=== PATIENT | female | born 1985 | race Caucasian/White ===

== ENCOUNTER → 2016-04-07 | Outpatient (CLI) | payer OTHER ==
[~2016-04-07] MED LIST: LEVO88TA PO; LEVO88TA3 PO; METH0.2T39 PO; PRENTAB26 PO
[2016-04-07 12:04] LABS: THYROID STIMULATING HORMONE 0.916 uIu/ml (0.300-4.500)
== END | disposition home or self-care (01) ==
LOC: C.LAB1850 09:06
PROVIDERS: ATTEND Obstetrics & Gynecology
DX: O99.280 Endocrine, nutritional and metabolic diseases complicating pregnancy, unspecified trimester (principal); Z3A.00 Weeks of gestation of pregnancy not specified

== ENCOUNTER → 2016-04-19 | Outpatient (CLI) | payer OTHER ==
[2016-04-19 16:44] LABS: BASO % 0.4 %; BASO ABS # 0.05 K/uL (0-0.2); COMPLETE YES; EOS % 0.5 %; HEMATOCRIT 34.4 % (37-47); IG% 4.9 %; LYMPH % 16.2 %; LYMPH ABS # 2.21 K/uL (1.2-3.4); MEAN CELL VOLUME 85.6 fL (80-100); MEAN CORPUSCULAR HEMOGLOBIN 28.9 pg (25-34); MEAN CORPUSCULAR HGB CONC 33.7 g/dl (32-36); MONO % 6.3 %; NEUT % 71.7 %; PLATELET COUNT 350 K/uL (130-400); RED BLOOD COUNT 4.02 M/uL (4.2-5.4); WHITE BLOOD COUNT 13.63 K/uL (4.8-10.8)
[2016-04-19 16:52] LABS: ALT/SGPT 13 U/L (12-78); BLOOD UREA NITROGEN 8 mg/dl (7-18); BUN/CREATININE RATIO 13.9 (10-20); CALCIUM 8.8 mg/dl (8.5-10.1); CARBON DIOXIDE 25 mmol/L (21-32); CHLORIDE 104 mmol/L (98-107); CREATININE 0.54 mg/dl (0.60-1.20); GLUCOSE 83 mg/dl (70-99); POTASSIUM 3.6 mmol/L (3.5-5.1); SODIUM 140 mmol/L (136-145)
[2016-04-19 17:03] LABS: ALB/GLOB RATIO 0.8 (0.9-2); ALKALINE PHOSPHATASE 51 U/L (45-117); AST/SGOT 14 U/L (15-37); THYROID STIMULATING HORMONE 0.554 uIu/ml (0.300-4.500)
== END | disposition home or self-care (01) ==
LOC: C.LAB1850 15:07
PROVIDERS: ATTEND Internal Medicine Endocrinology, Diabetes & Metabolism
DX: E06.3 Autoimmune thyroiditis (principal)

== ENCOUNTER 2016-04-23 11:30 | Emergency (ER) | payer OTHER ==
[~2016-04-23] VITALS: Ht 165.1 cm; Wt 66.0 kg
[~2016-04-23 11:30] MED LIST changes: -LEVO88TA PO; -PRENTAB26 PO
[2016-04-23 11:35] VITALS: TEMP 36.8; Ht 165.1 cm; Wt 66.0 kg
[2016-04-23 11:42] VITALS: O2SAT 97
[2016-04-23 12:15] LABS: BASO % 0.3 %; BASO ABS # 0.04 K/uL (0-0.2); COMPLETE YES; EOS % 0.4 %; HEMATOCRIT 36.5 % (37-47); IG% 4.8 %; LYMPH ABS # 2.35 K/uL (1.2-3.4); MEAN CELL VOLUME 86.7 fL (80-100); MEAN CORPUSCULAR HGB CONC 33.4 g/dl (32-36); MEAN PLATELET VOLUME 9.9 fL (7.4-10.4); MONO % 5.4 %; NEUT % 73.1 %; PLATELET COUNT 356 K/uL (130-400); RED BLOOD COUNT 4.21 M/uL (4.2-5.4); WHITE BLOOD COUNT 14.67 K/uL (4.8-10.8)
[2016-04-23 12:22] LABS: URINE APPEARANCE CLEAR (CLEAR); URINE BILIRUBIN NEG (NEG); URINE COLOR YELLOW; URINE NITRITE NEG (NEG); UROBILINOGEN NEG (NEG); ZZUR CULT IF INDIC CLEAN CATCH NO
[2016-04-23 12:23] LABS: MANUAL MICROSCOPIC REQUIRED? NO; REVIEW REQ? NO
[2016-04-23 12:58] LABS: ALB/GLOB RATIO 0.8 (0.9-2); ALKALINE PHOSPHATASE 56 U/L (45-117); ALT/SGPT 16 U/L (12-78); AST/SGOT 13 U/L (15-37); CHLORIDE 104 mmol/L (98-107); POTASSIUM 3.9 mmol/L (3.5-5.1); SODIUM 139 mmol/L (136-145)
--- NOTE | 2016-04-23 12:58 | DIAGNOSTIC IMAGING REPORT ---
CHEST ONE VIEW PORTABLE CLINICAL HISTORY: palpitations, pt is 23 wks COMPARISON STUDY: No previous studies for comparison. FINDINGS: The cardiac and mediastinal contours are normal. There is no evidence of focal pulmonary consolidation. There is no evidence of failure. No pleural effusions are visualized.[ IMPRESSION: No active disease in the chest. Electronically signed by: Gonzalez Valdez M.D. 04/23/2016 12:57 PM Dictated Date/Time: 04/23/2016 12:57 PM
[2016-04-23 13:12] LABS: BLOOD UREA NITROGEN 7 mg/dl (7-18); BUN/CREATININE RATIO 10.2 (10-20); CALCIUM 9.2 mg/dl (8.5-10.1); CARBON DIOXIDE 25 mmol/L (21-32); CREATININE 0.65 mg/dl (0.60-1.20); GLUCOSE 73 mg/dl (70-99)
--- NOTE | 2016-04-23 13:46 | EMERGENCY ROOM VISIT NOTE ---
History First contact with patient: 11:51 Chief Complaint: REFERRED BY DOCTOR Stated Complaint: HIGH RESTING HEART RATE, 23WKS PREG History of Present Illness The patient is a 31 year old female who presents to the Emergency Room with complaints of tachycardia. The patient is currently 23 weeks . She states that over the past 2 weeks, she has had 3 separate episodes of a high resting heart rate. She states that this morning while she was sitting down, she began to feel palpitations with some associated shortness of breath. She states that she checked her heart rate on her watch and it was 130 to 140 bpm. She states that the episode lasted approximately 2 hours. She has had these episodes in the past, they have resolved without any treatment. She has been seeing her XEROX MACHINE ASSEMBLER regarding these and she called them today, so they sent her here for further evaluation. The patient has a history of Neema's but has been following up closely with endocrinology and states that she had a normal TSH and T4 this week. Her has been uneventful so far. This is her second . She denies any chest pain, nausea, vomiting, recent illness or fevers. She denies any history of blood clots. She is not a smoker. She denies any recent long travel or recent surgeries. Review of Systems A complete 10-point Review of Systems was discussed with the patient, with pertinent positives and negatives listed in the History of Present Illness. All remaining Review of Systems questions can be considered negative unless otherwise specified. Past Medical/Surgical History Medical Problems: (1) Breast cancer (2) History of partial mastectomy of both breasts Family History Patient reports no known family medical history. Social History Smoking Status: Never Smoker Alcohol Use: none Marital Status: Occupation Status: employed Current/Historical Medications Scheduled Levothyroxine Sodium (Synthroid), 88 MCG PO DAILY Multivit/Min/Iron/Fol Ac/Pren ( Vitamin), 1 TAB PO DAILY Allergies Coded Allergies: Propoxyphene (Verified Allergy, Intermediate, hives, 07/20/15) Codeine (Verified Allergy, Unknown, hives, 07/20/15) Oxycodone (Verified Allergy, Unknown, hives, 07/20/15) Physical Exam Vital Signs Date Time Temp Pulse Resp B/P Pulse Ox O2 Delivery O2 Flow Rate FiO2 04/23/16 13:58 73 16 104/64 98 04/23/16 12:45 70 18 133/62 100 Room Air 04/23/16 12:08 86 04/23/16 11:42 97 Room Air 04/23/16 11:35 36.8 86 16 125/73 99 Room Air Physical Exam VITALS: Vitals are noted on the nurse's note and reviewed by myself. Vital signs stable. GENERAL: This is a 31-year-old female, in no acute distress, nondiaphoretic, well-developed well-nourished. SKIN: Capillary reflex less than 2 seconds. HEENT: Normocephalic. PERRLA. EOMI. Nares. Mucous membranes moist. Neck is supple without nuchal rigidity. HEART: Regular rate and rhythm without murmurs gallops or rubs. LUNGS: Clear to auscultation bilaterally without wheezes, rales or rhonchi. No retractions or accessory muscle use. ABDOMEN: Gravid uterus. Soft, nontender to palpation. NEURO: Patient was alert and oriented to person place and time. Medical Decision & Procedures ER Provider Diagnostic Interpretation: CHEST ONE VIEW PORTABLE FINDINGS: The cardiac and mediastinal contours are normal. There is no evidence of focal pulmonary consolidation. There is no evidence of failure. No pleural effusions are visualized.[ IMPRESSION: No active disease in the chest. Laboratory Results 04/23/16 11:46 Red Blood Count 4.21, Mean Corpuscular Volume 86.7, Mean Corpuscular Hemoglobin 29.0, Mean Corpuscular Hemoglobin Concent 33.4, Mean Platelet Volume 9.9, Neutrophils (%) (Auto) 73.1, Lymphocytes (%) (Auto) 16.0, Monocytes (%) (Auto) 5.4, Eosinophils (%) (Auto) 0.4, Basophils (%) (Auto) 0.3, Neutrophils # (Auto) 10.73, Lymphocytes # (Auto) 2.35, Monocytes # (Auto) 0.79, Eosinophils # (Auto) 0.06, Basophils # (Auto) 0.04 04/23/16 11:46 Test 04/23/16 11:40 04/23/16 11:46 Urine Color YELLOW Urine Appearance CLEAR (CLEAR) Urine pH 7.0 (4.5-7.5) Urine Specific Cost 1.000 (1.000-1.030) Urine Protein NEG (NEG) Urine Glucose (UA) NEG (NEG) Urine Ketones NEG (NEG) Urine Occult Blood NEG (NEG) Urine Nitrite NEG (NEG) Urine Bilirubin NEG (NEG) Urine Urobilinogen NEG (NEG) Urine Leukocyte Esterase NEG (NEG) White Blood Count 14.67 K/uL (4.8-10.8) Red Blood Count 4.21 M/uL (4.2-5.4) Hemoglobin 12.2 g/dL (12.0-16.0) Hematocrit 36.5 % (37-47) Mean Corpuscular Volume 86.7 fL (80-100) Mean Corpuscular Hemoglobin 29.0 pg (25-34) Mean Corpuscular Hemoglobin Concent 33.4 g/dl (32-36) Platelet Count 356 K/uL (130-400) Mean Platelet Volume 9.9 fL (7.4-10.4) Neutrophils (%) (Auto) 73.1 % Lymphocytes (%) (Auto) 16.0 % Monocytes (%) (Auto) 5.4 % Eosinophils (%) (Auto) 0.4 % Basophils (%) (Auto) 0.3 % Neutrophils # (Auto) 10.73 K/uL (1.4-6.5) Lymphocytes # (Auto) 2.35 K/uL (1.2-3.4) Monocytes # (Auto) 0.79 K/uL (0.11-0.59) Eosinophils # (Auto) 0.06 K/uL (0-0.5) Basophils # (Auto) 0.04 K/uL (0-0.2) RDW Standard Deviation 43.6 fL (36.4-46.3) RDW Coefficient of Variation 13.9 % (11.5-14.5) Immature Granulocyte % (Auto) 4.8 % Immature Granulocyte # (Auto) 0.70 K/uL (0.00-0.02) Anion Gap 10.0 mmol/L (3-11) Est Creatinine Clear Calc Drug Dose 113.9 ml/min Estimated GFR () 138.1 Estimated GFR (Non- 119.1 BUN/Creatinine Ratio 10.2 (10-20) Calcium Level 9.2 mg/dl (8.5-10.1) Total Bilirubin 0.2 mg/dl (0.2-1) Aspartate Amino Transf (AST/SGOT) 13 U/L (15-37) Alanine Aminotransferase (ALT/SGPT) 16 U/L (12-78) Alkaline Phosphatase 56 U/L (45-117) Troponin I < 0.015 ng/ml (0-0.045) Total Protein 7.0 gm/dl (6.4-8.2) Albumin 3.2 gm/dl (3.4-5.0) Globulin 3.8 gm/dl (2.5-4.0) Albumin/Globulin Ratio 0.8 (0.9-2) Free Thyroxine 1.09 ng/dl (0.80-1.60) ECG Rate (beats per minute): 77 Rhythm: normal sinus Findings: no acute ischemic change, no ectopy Comparison ECG Date: no prior available Medical Decision Differential diagnosis includes arrhythmia, ACS, pulmonary embolism, anxiety, among others. The patient was evaluated as above. Labs were drawn and IV access was obtained. Imaging studies were performed and read by radiology as above. The patient was reassessed multiple times during their stay in the emergency department and remained in stable condition. The patient is a 31-year-old female at 23 weeks gestation who presents today complaining of palpitations. Labs revealed no leukocytosis, anemia or concerning electrolyte abnormalities. Urinalysis was not suggestive of infection. The patient had a normal TSH and T4 this week. EKG was interpreted by myself and showed a normal sinus rhythm. Chest x-ray was performed and was unremarkable. The patient was placed on a bus driver/monitor throughout her stay and her heart rate remained in the 70s to 80s. heart tones were checked and were within normal limits. The patient's symptoms may be related to anxiety. She most likely will need a Holter monitor in the future. However, I do not feel that she needs to be admitted at this time. She may follow-up with cardiology as an outpatient. I spoke with the patient's XEROX MACHINE ASSEMBLER, Dr. Amaya, who recommended reassuring the patient that there was no risk of harm to the fetus. They will arrange follow-up with cardiology from their office this Monday. All findings were discussed with the patient, who was happy with this plan of care. Based on the patient's presentation, lab results, and imaging studies, I feel the patient is stable for outpatient treatment. The patient's case was reviewed with Dr. Cerna, ED attending physician, who agreed with my assessment and treatment plan. Discharge instructions were reviewed with the patient. The patient verbalized understanding of my assessment and treatment plan and was discharged home in good condition. Impression Primary Impression: Palpitations Departure Information Dispostion Home / Self-Care Condition GOOD Referrals No Doctor, Assigned (PCP) Adal Amaya M.D. Patient Instructions My [facility] Additional Instructions Call your XEROX MACHINE ASSEMBLER's office on Monday to schedule follow-up and referral to cardiology. Return to the emergency department with chest pain, worsening shortness of breath, persistent palpitations or any other new/concerning symptoms.
[2016-04-23 13:58] VITALS: BP 104/64; PULSE 73; O2SAT 98
[2016-04-23] MEDS ORDERED: LEVO88TA PO (14:01)
[2016-04-23] MEDS ORDERED: PRENTAB26 PO (14:01)
== END 2016-04-23 13:59 | disposition home or self-care (01) ==
LOC: C.EDB 11:31 → C.EDA 13:59
DX: O99.413 Diseases of the circulatory system complicating pregnancy, third trimester (principal); R00.2 Palpitations; Z85.3 Personal history of malignant neoplasm of breast; Z90.13 Acquired absence of bilateral breasts and nipples

== ENCOUNTER → 2016-05-26 | Outpatient (CLI) | payer OTHER ==
[~2016-05-26] MED LIST changes: +LEVO88TA PO; -LEVO88TA3 PO; -METH0.2T39 PO; +PRENTAB26 PO
[2016-05-26 11:27] LABS: HEMATOCRIT 33.8 % (37-47)
[2016-05-26 11:53] LABS: THYROID STIMULATING HORMONE 0.214 uIu/ml (0.300-4.500)
[2016-05-26 12:12] LABS: GTGD 50 Grams
[2016-05-26 12:49] LABS: URINE APPEARANCE CLEAR (CLEAR); URINE BILIRUBIN NEG (NEG); URINE COLOR YELLOW; URINE EPITHELIAL CELL AUTO >30 /lpf (0-5); URINE NITRITE NEG (NEG); URINE SPECIFIC GRAVITY 1.008 (1.000-1.030); UROBILINOGEN NEG (NEG)
[2016-05-26 12:56] LABS: MANUAL MICROSCOPIC REQUIRED? NO; REVIEW REQ? NO
== END | disposition home or self-care (01) ==
LOC: C.LAB1850 09:23
PROVIDERS: ATTEND Obstetrics & Gynecology
DX: Z36 Encounter for antenatal screening of mother (principal); O09.299 Supervision of pregnancy with other poor reproductive or obstetric history, unspecified trimester; O99.282 Endocrine, nutritional and metabolic diseases complicating pregnancy, second trimester

== ENCOUNTER → 2016-06-23 | Outpatient (CLI) | payer OTHER ==
[2016-06-23 18:04] LABS: THYROID STIMULATING HORMONE 0.162 uIu/ml (0.300-4.500)
== END | disposition home or self-care (01) ==
LOC: C.LAB1850 15:29
PROVIDERS: ATTEND Obstetrics & Gynecology
DX: O99.283 Endocrine, nutritional and metabolic diseases complicating pregnancy, third trimester (principal); Z3A.00 Weeks of gestation of pregnancy not specified

== ENCOUNTER → 2016-07-21 | Outpatient (CLI) | payer OTHER | END | disposition home or self-care (01) | LOC: C.LABSPEC 15:15 | PROVIDERS: ATTEND Obstetrics & Gynecology | DX: Z34.83 Encounter for supervision of other normal pregnancy, third trimester (principal) ==

== ENCOUNTER 2016-08-09 11:05 | Inpatient (IN) | payer OTHER ==
[~2016-08-09] VITALS: Ht 165.1 cm; Wt 75.9 kg
[2016-08-10] MEDS ORDERED: LACTATED RINGER'S 1000ML 1,000 ML IV PRN (08:16)
[2016-08-10] MEDS ORDERED: LACTATED RINGER'S 1000ML 500 ML IV PRN ×2 (08:16→14:00)
[2016-08-10] MEDS ORDERED: ONDANSETRON 8 MG/54 ML D5W IV ONE (08:30)
[2016-08-10] MEDS ORDERED: OXYTOCIN 30 UNITS/500ML NSS IV PRN ×2 (08:30→16:15)
[2016-08-10] MEDS ORDERED: ONDANSETRON INJ 2 MG/ML 2 ML VIAL IV ONE (08:45)
[2016-08-10] MEDS: LACTATED RINGER'S 1000ML 1,000 ML IV SCH ×2 (08:50→13:12)
[2016-08-10 08:54] LABS: HEMATOCRIT 39.9 % (37-47); MEAN CELL VOLUME 87.5 fL (80-100); MEAN CORPUSCULAR HEMOGLOBIN 29.2 pg (25-34); MEAN CORPUSCULAR HGB CONC 33.3 g/dl (32-36); PLATELET COUNT 315 K/uL (130-400); RED BLOOD COUNT 4.56 M/uL (4.2-5.4); WHITE BLOOD COUNT 12.48 K/uL (4.8-10.8)
[2016-08-10 09:19] VITALS: Ht 165.1 cm; Wt 75.9 kg
--- NOTE | 2016-08-10 09:41 | Medical Student: [facility] ---
Med Student History & Physical Date of Service August 10, 2016. Chief Complaint Induction with hx of precipitous delivery History of Present Illness Source: patient Pt is a 31F , TASNEEM 08/15/16 via US for induction with hx of precipitous delivery. 39-2 week. course has been uncomplicated OB History G1: at 39 weeks; M; [id number], labor time 2 hrs (2011) G2: spontaneous , D&E (2015) DATA SECURITY ADMINISTRATOR History Menarche: 14 LMP: 10/22/15 Pap smear: hx of abnormal pap smear in 2013, but normal colposcopy -most recent pap 10/2015 was normal Past Medical History hx of Neema's controlled with synthroid, anxiety and sports induced asthma Past Surgical History -tumor removed in R breast in 2006 -D&E in 2015 -tonsillectomy -myrinotomy tubes -wisdom teeth Family History Maternal: thyroid issue, glaucoma Social History lives with , son and cat - cleans litter box Smoking Status: Never Smoker Smokeless Tobacco Use: No Alcohol Use: none Drug Use: none Marital Status: Housing status: lives with family Occupational Status: employed Allergies Coded Allergies: Propoxyphene (Verified Allergy, Intermediate, hives, 07/20/15) Codeine (Verified Allergy, Unknown, hives, 07/20/15) Oxycodone (Verified Allergy, Unknown, hives, 07/20/15) Home Medications Levothyroxine Sodium (Synthroid), 88 MCG PO DAILY Multivit/Min/Iron/Fol Ac/Pren ( Vitamin), 1 TAB PO DAILY Review of Systems Constitutional: No chills, No fever Eyes: No eye pain, No worsening of vision ENT: No hearing loss Respiratory: No cough, No shortness of breath, No wheezing Cardiovascular: No chest pain, No claudication, No edema Abdomen: + nausea, + vomiting (did vomit this morning with breakfast but is not present now), No pain Musculoskeletal: No calf pain, No swelling Genitourinary - Female: No dysuria Endocrine: No excessive thirst, No fatigue Physical Exam General Appearance: WD/WN, no apparent distress Head: normocephalic, atraumatic Respiratory/Chest: chest non-tender, lungs clear, normal breath sounds Cardiovascular: regular rate, rhythm, no gallop, no murmur Extremities: no calf tenderness, no pedal edema Skin: normal color, warm/dry Cervix exam done by Dr. Amaya 4cm, 80% effaced, station: -2 Monitoring External Monitor: HR: 140 moderate variability, accels present, Category 1 Tocodynamometer: Irregular Laboratory Results 08/10/16 08:45 Test 08/10/16 08:45 Red Blood Count 4.56 M/uL (4.2-5.4) Mean Corpuscular Volume 87.5 fL (80-100) Mean Corpuscular Hemoglobin 29.2 pg (25-34) Mean Corpuscular Hemoglobin Concent 33.3 g/dl (32-36) RDW Standard Deviation 44.1 fL (36.4-46.3) RDW Coefficient of Variation 13.7 % (11.5-14.5) Mean Platelet Volume 10.0 fL (7.4-10.4) Previous CBCs (01/07/16) Hgb 11.4, Hct 33.8% (05/26/16) Hgb 13.9, Hct 40.7% Blood type: B+ Rubella: immune GBS: negative HIV: negative C/G: neg/neg neg 1 hr glc x2 Assessment and Plan Pt is a 31F at 39-2 week gestation who presents for induction with hx of precipitous delivery. Blood type: B+ Rubella: immune GBS: negative HIV: negative C/G: neg/neg neg 1 hr glc x2 Induction plan with pitocin and increase 2mu/min in Q30 min if contractions are inadequate. If required will AROM.
[2016-08-10] MEDS ORDERED: BUPIVACAINE 0.25% 30 ML VIAL ONE (12:51)
[2016-08-10] MEDS ORDERED: EpHEDrine SULFATE INJ 50 MG/ML AMP ONE (12:51)
[2016-08-10] MEDS ORDERED: FENTANYL CITRATE INJ 50 MCG/1 ML 2 ML VIAL ONE (12:52)
[2016-08-10] MEDS ORDERED: FENTANYL 2MCG/ML ROPIV 1.25MG/ML 100ML BAG EPI ONE (12:53)
[2016-08-10] MEDS ORDERED: FENTANYL 2MCG/ML ROPIV 1.25MG/ML 100ML BAG EPI PRN (14:00)
[2016-08-10] MEDS ORDERED: NALOXONE HCL INJ 1 MG in SODIUM CHLORIDE 0.9% 1000ML 1,000 ML IV PRN (14:00)
[2016-08-10] MEDS ORDERED: NALOXONE HCL INJ 0.4 MG/1 ML VIAL/CARP IV PRN (14:00)
[2016-08-10] MEDS ORDERED: DiphenhydrAMINE HCL 50 MG/ML VIAL IV PRN (14:00)
[2016-08-10] MEDS ORDERED: EpHEDrine SULFATE INJ 50 MG/ML AMP IV PRN (14:00)
[2016-08-10] MEDS ORDERED: OXYTOCIN INJ 20 UNITS in LACTATED RINGER'S 1000ML 1,000 ML IV SCH (16:10)
[2016-08-10] MEDS ORDERED: DIPHTHERIA/TETANUS/PERTUSSIS 0.5 ML SYR/VIAL IM. ONE (16:15)
[2016-08-10] MEDS ORDERED: LANOLIN OINT EXT PRN ×2 (16:15)
[2016-08-10] MEDS ORDERED: SUPERCREAM 0.870 % 15GM JAR EXT PRN (16:15)
[2016-08-10] MEDS ORDERED: HYDROCORTISONE ACETATE 25 MG SUPP PR PRN (16:15)
[2016-08-10] MEDS ORDERED: ACETAMINOPHEN 325 MG TAB PO PRN ×2 (16:15)
[2016-08-10] MEDS ORDERED: BENZOCAINE 20% AER SPR 82.5 GM CAN EXT PRN (16:15)
--- NOTE | 2016-08-10 16:17 | Medical Student: [facility] ---
Medical Student Delivery Note Melissa (31F ) arrived at the hospital for an induction due to hx of precipitous delivery on 08/10/2016. Pt is 39-2 weeks gestation, GBS-, blood type B+. Initial cervix exam showed pt at 4cm, 80% effaced and -2 station. Epidural given at request of the pt, then AROM was performed. Baby delivered head in occiput anterior position. Mouth and nose suctioned with bulb and no nuchal cord was found. Female baby delivered. Delayed cord clamping was performed and cord blood obtained. A small second-degree laceration of the vaginal wall in the midline was repaired. Estimated blood loss was 300cc. Mother and baby stable.
--- NOTE | 2016-08-10 16:28 | DELIVERY SUMMARY ---
DATE OF OPERATION: 08/10/2016 The patient dilated to complete and pushed to deliver a viable female infant, Apgars 8 and 9, via over a second-degree perineal laceration. Mouth and nose bulb suctioned at the perineum. Shoulders and body delivered with ease and effective maternal expulsive efforts. The vigorous and crying at . Cord was clamped at approximately 40 seconds of life. was on maternal abdomen. Cord doubly clamped and then cut. Placenta was delivered spontaneously and intact 3-vessel cord. Hemostasis achieved with dilute Pitocin and uterine massage. Cervix and sulci intact. Laceration repaired in usual fashion using 3-0 Vicryl. Mother and baby stable on recovery. EBL 300 mL. I attest to the content of the Intraoperative Record and any orders documented therein. Any exceptio ns are noted below.
[2016-08-10] MEDS: IBUPROFEN 600 MG TAB PO PRN ×2 (17:48→23:41)
--- NOTE | 2016-08-10 17:49 | Anesthesia Procedure Note ---
Anesthesia Epidural Removal Nt Date & Time August 10, 2016 at 17:50 Vital Signs Pain Intensity: 1.0 Notes Mental Status: alert / awake / arousable, participated in evaluation Nausea / Vomiting: adequately controlled Pain: adequately controlled Airway Patency, RR, SpO2: stable & adequate BP & HR: stable & adequate Hydration State: stable & adequate Neuraxial Anesthesia: was administered Anesthetic Complications: no major complications apparent, pt satisfied with anesthetic care Epidural: removed without complications, with tip intact
[2016-08-10 23:35] VITALS: BP 107/66; PULSE 70; TEMP 36.6; O2SAT 97
[2016-08-10] MEDS: DOCUSATE SODIUM 100 MG CAP PO SCH (23:42)
[2016-08-11 04:00] VITALS: BP 117/71; PULSE 70; TEMP 36.8; O2SAT 98
[2016-08-11] MEDS: IBUPROFEN 600 MG TAB PO PRN ×3 (04:17→19:42)
[2016-08-11] MEDS ORDERED: LEVOTHYROXINE 88 MCG TAB PO ONE (07:00)
--- NOTE | 2016-08-11 07:06 | Progress Note ---
Subjective August 11, 2016. Subjective conversation w/ patient, physical exam Ambulation: ambulating normally Voiding: no voiding problems Diet Tolerance: Regular Diet Lochia: Small Feeding Type: Breast Feeding Pain: alot of painful cramps with nursing. Objective Vital Signs Date Time Temp Pulse Resp B/P Pulse Ox O2 Delivery O2 Flow Rate FiO2 08/11/16 04:00 36.8 70 16 117/71 98 Room Air 08/10/16 23:35 36.6 70 16 107/66 97 Room Air 08/10/16 23:35 97 Room Air Physical Exam General Appearance: WELL-APPEARING, WD/WN, NO APPARENT DISTRESS Respiratory/Chest: lungs clear Cardiovascular: regular rate, rhythm Abdomen: non tender, soft Fundus: Firm, Relation to Umbilicus ( 2 down) Extremities: non-tender, no calf tenderness Laboratory Results Last 24 Hours Test 08/10/16 08:45 White Blood Count 12.48 K/uL Red Blood Count 4.56 M/uL Hemoglobin 13.3 g/dL Hematocrit 39.9 % Mean Corpuscular Volume 87.5 fL Mean Corpuscular Hemoglobin 29.2 pg Mean Corpuscular Hemoglobin Concent 33.3 g/dl RDW Standard Deviation 44.1 fL RDW Coefficient of Variation 13.7 % Platelet Count 315 K/uL Mean Platelet Volume 10.0 fL Assessment and Plan Problem List Medical Problems: (1) Palpitations Status: Acute Post- Day#: 1 Continue Routine Care: stable, routine care. pain meds for cramps reviewed. needs breast pump script.
--- NOTE | 2016-08-11 07:14 | Medical Student: [facility] ---
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 Subjective Ambulation: ambulating normally Voiding: no voiding problems Passing Gas: No Diet Tolerance: Regular Diet Lochia: Moderate Feeding Type: Breast Feeding Pain: 2-3 and about the same on meds Notes: Pt is a 31F , PPD#1 s/p NVD. Induced for hx of precipitous delivery. Blood type B+ Rubella: immune GBS: negative Review of Systems Constitutional: No chills, No fever Respiratory: No cough, No shortness of breath, No wheezing Cardiac: No chest pain, No palpitations Abdomen: No nausea, No vomiting Female : No dysuria, No urinary frequency Objective Vital Signs Date Time Temp Pulse Resp B/P Pulse Ox O2 Delivery O2 Flow Rate FiO2 08/11/16 04:00 36.8 70 16 117/71 98 Room Air 08/10/16 23:35 36.6 70 16 107/66 97 Room Air 08/10/16 23:35 97 Room Air Physical Exam General Appearance: WELL-APPEARING, WD/WN, NO APPARENT DISTRESS Respiratory/Chest: chest non-tender, lungs clear, normal breath sounds Cardiovascular: regular rate, rhythm, no edema, no murmur Fundus: Firm, Relation to Umbilicus (2 cm below) Extremities: no pedal edema, no calf tenderness Laboratory Results Last 24 Hours Test 08/10/16 08:45 White Blood Count 12.48 K/uL Red Blood Count 4.56 M/uL Hemoglobin 13.3 g/dL Hematocrit 39.9 % Mean Corpuscular Volume 87.5 fL Mean Corpuscular Hemoglobin 29.2 pg Mean Corpuscular Hemoglobin Concent 33.3 g/dl RDW Standard Deviation 44.1 fL RDW Coefficient of Variation 13.7 % Platelet Count 315 K/uL Mean Platelet Volume 10.0 fL Assessment and Plan Post- Day Number: 1 Continue Routine Care: Pt is a 31F PPD#1, s/p NVD doing well Pt wants to remain in hospital today and will continue care. Discussed pain management with meds and talked about options. Want to continue routine care and encourage and ambulation. Likely discharge tomorrow.
[2016-08-11 07:29] VITALS: BP 117/72; PULSE 68; TEMP 36.5; O2SAT 97
[2016-08-11] MEDS ORDERED: LEVOTHYROXINE 88 MCG TAB PO SCH (07:30)
[2016-08-11] MEDS: ACETAMINOPHEN/CODEINE 300/30MG TAB PO PRN ×4 (07:46→23:56)
[2016-08-11] MEDS: DOCUSATE SODIUM 100 MG CAP PO SCH ×2 (07:47→19:41)
[2016-08-11] MEDS ORDERED: PRENATAL VITAMIN TAB PO SCH (08:00)
[2016-08-11 11:30] VITALS: BP 115/70; PULSE 66; TEMP 36.7; O2SAT 99
[2016-08-11 15:55] VITALS: BP 97/61; PULSE 73; TEMP 36.7
[2016-08-11 23:30] VITALS: BP 113/66; PULSE 70; TEMP 36.8; O2SAT 96
[2016-08-12] MEDS: IBUPROFEN 600 MG TAB PO PRN (06:12)
--- NOTE | 2016-08-12 06:59 | Progress Note ---
Subjective August 12, 2016. Subjective conversation w/ patient, physical exam Ambulation: ambulating normally Voiding: no voiding problems Feeding Type: Breast Feeding Objective Vital Signs Date Time Temp Pulse Resp B/P Pulse Ox O2 Delivery O2 Flow Rate FiO2 08/11/16 23:30 36.8 70 16 113/66 96 Room Air 08/11/16 23:30 96 Room Air 08/11/16 15:55 Room Air 08/11/16 15:55 36.7 73 16 97/61 Room Air 08/11/16 11:30 36.7 66 18 115/70 99 Room Air 08/11/16 07:29 36.5 68 18 117/72 97 Room Air Physical Exam General Appearance: WELL-APPEARING, NO APPARENT DISTRESS Fundus: Firm, Non-Tender Extremities: no calf tenderness Assessment and Plan Problem List Medical Problems: (1) Palpitations Status: Acute Post- Day#: 2 Continue Routine Care: - doing well - desires d/c - instructions given - f/u in 6 weeks
--- NOTE | 2016-08-12 07:00 | Discharge Instructions ---
Discharge Instructions Date of Service August 12, 2016. Admission Reason for Admission: Induction Discharge Discharge Diagnosis / Problem: same Discharge Goals Goal(s): Routine recovery after delivery Medications Continue Dispensed Medications: supercream, dermaplast Activity Recommendations Activity Limitations: as noted below . Instructions / Follow-Up Instructions / Follow-Up ACTIVITY RECOMMENDATIONS: * Gradual return to full activity over the next 2-3 weeks. * No lifting - nothing heavier than baby over the next 2-3 weeks. * Do not engage in vigorous exercise, sexual activity or sports until cleared by your physician. * Do not drive or operate any motorized equipment until cleared by your physician. * You may shower/bathe daily. MEDICATIONS: For discomfort or pain, you may use Acetaminophen (Tylenol), Ibuprofen (Advil), or Naproxen (Aleve) following the package directions. For constipation you may use Colace following the package directions. BREAST CARE: If you are not breast feeding: * Wear a supportive bra 24 hours a day for one to two weeks. * Avoid stimulating your breasts and nipples as much as possible during the first few weeks after delivery. * When taking a shower, have the warm water hit your back, not breasts. * When your breasts feel full, apply ice packs. Usually three to four times a day helps ease the discomfort. * Take a mild pain medication (Tylenol / Motrin) when you are uncomfortable. If breast feeding: * Use breast milk to lubricate nipples. Lansinoh cream may be used for sore nipples. You do not need to remove cream prior to breast feeding. If using a different brand of cream, check the label for directions regarding removal of cream prior to nursing. * Wear a supportive bra. * If having problems with breasts or breast feeding, call a dynamics ax consultant or your health care provider. EPISIOTOMY CARE: After delivery, if you have an episiotomy (stitches), the following steps will ease discomfort and aid healing. * For the first 24 hours after delivery, place ice packs next to your episiotomy to help reduce swelling. * After the first 24 hour-period, sitz baths, either portable or in the tub, are suggested. A shower with a shower arm sprayed over the episiotomy may be comforting. * [place] care should be done after each voiding and bowel movement. Squirt warm water from a plastic bottle over the perineum (region of the body between the anus and urinary opening) and pat dry. * Use Dermoplast to ease discomfort. Shake container. [place] directly over the episiotomy. Place a Tucks on a clean sanitary pad next to your episiotomy. SPECIAL CARE INSTRUCTIONS: When you are discharged from the hospital, it is important for you to follow the instructions listed below: * During the first week at home, you should be able to care for yourself and your baby. In addition, the usual light household activities are encouraged. * Limit your activities to the way you feel. Do not try to clean the house or move furniture. Be sensible. * If you actively engage in sports and have done so up until the time of your delivery, you may resume these activities as soon as you feel able. This may take up to one month or even longer. Use good judgment. * Continue to take your vitamins for at least six weeks after the of your baby. * Your diet need not be limited unless you were on a special diet before your delivery. Breast-feeding mothers need around 2500 calories per day and at least 64-80 ounces of fluid per day (8 to 10 glasses). * You should eat foods from the four major food groups. Crash diets or fad diets are to be avoided. Eating lean meats, fresh fruits and vegetables, low-fat dairy products, high fiber foods and a regular exercise program, will help you get back to your pre- weight without putting your health at risk. * Constipation is sometimes a problem after delivery. Take a mild laxative as needed. If breast feeding, Milk of Magnesia is acceptable to use. You may use a suppository or Fleets enema if no episiotomy. * A daily shower or tub bath is suggested. Be sure to thoroughly and gently dry the perineum. * A bloody vaginal discharge will usually continue until around four weeks post . A small amount of bleeding may continue for as long as six weeks. Vaginal discharge changes from the bright red bleeding after delivery to pink then brownish and finally yellowish-pink before becoming white and disappearing. * Bleeding may increase with activity. Your first period may come in 4-8 weeks. If you are breast feeding, your period may be delayed even longer. * [place] (sex) can begin whenever both you and your partner feel comfortable and do not have any form of genital infection. It is recommended that you wait at least six weeks for internal and external healing to occur. If you have questions, please talk to your health care practitioner. A condom should be used to prevent infection and . * Foreplay, gentle intercourse and lubrication is very important the first several times to prevent pain. A water-based lubricant such as K-Y jelly or Astroglide may be used. * If you have RH negative blood and your baby is RH positive, you will receive RHOGAM by injection prior to discharge. The nurse will give you a card to keep with you that has the date and place that you received RHOGAM after delivery. * During your care, you had a Rubella screen done to check for the presence of rubella antibodies in your blood. If your test was negative, you will receive a Rubella vaccine prior to discharge. This vaccine may cause a fever, soreness at the injection site and flu-like symptoms. If these symptoms persist, notify your health care practitioner. is not advised for one month after a Rubella vaccine. * Verbalizes understanding of car seat law as reviewed with patient nursing. * Car Seat hand-out given and reviewed with patient by nursing. * Shaken baby information reviewed with patient by nursing. Call you doctor if: * Heavy bleeding (saturating several pads an hour) or passing clots the size of your fist. * A fever >101 degrees F (38.3 degrees C) on two occasions four hours apart and /or chills. * Unusual pain in the pelvic or vaginal areas. * "Baby Blues" lasting longer than two weeks. If you have any questions or concerns, call your health care practitioner at . FOLLOW UP VISIT: * Please call the office at to schedule a 6 week examination. It is important you keep this appointment. It is important for you to make arrangements for either yearly or twice yearly check-ups thereafter. Current Hospital Diet Patient's current hospital diet: Regular OB Diet Discharge Diet Recommended Diet: Regular OB Diet Pending Studies Studies pending at discharge: no Medical Emergencies . Who to Call and When: Medical Emergencies: If at any time you feel your situation is an emergency, please call 911 immediately. . Non-Emergent Contact Non-Emergency issues call your: [employer] Call Non-Emergent contact if: you have a fever, temperature is above 100.5 . . "Provider Documentation" section prepared by Benedict Degroot. . VTE Core Measure Inpt VTE Proph given/why not?: Treatment not indicated
[2016-08-12] MEDS ORDERED: LEVOTHYROXINE 88 MCG TAB PO SCH (07:30)
[2016-08-12] MEDS: DOCUSATE SODIUM 100 MG CAP PO SCH (07:36)
[2016-08-12 09:53] VITALS: BP_DIAS 66; PULSE 70; TEMP 36.8
== END 2016-08-12 10:35 | disposition home or self-care (01) | DRG 775 ==
LOC: C.LD 08-10 07:31 → C.OBG 08-10 23:18
PROVIDERS: ADMIT Obstetrics & Gynecology; ATTEND Obstetrics & Gynecology
PROC: 0KQM0ZZ Repair Perineum Muscle, Open Approach (ICD-10-PCS; principal; 2016-08-10)
PROC: 3E033VJ Introduction of Other Hormone into Peripheral Vein, Percutaneous Approach (ICD-10-PCS; principal; 2016-08-10)
PROC: 10E0XZZ Delivery of Products of Conception, External Approach (ICD-10-PCS; principal; 2016-08-10)
DX: O99.284 Endocrine, nutritional and metabolic diseases complicating childbirth (principal); E06.3 Autoimmune thyroiditis; O70.1 Second degree perineal laceration during delivery; Z37.0 Single live birth; Z3A.39 39 weeks gestation of pregnancy; Z79.899 Other long term (current) drug therapy

== ENCOUNTER → 2016-10-12 | Outpatient (CLI) | payer OTHER ==
[2016-10-12 12:11] LABS: BASO % 0.2 %; BASO ABS # 0.02 K/uL (0-0.2); COMPLETE YES; EOS % 1.1 %; HEMATOCRIT 42.6 % (37-47); IG% 0.2 %; LYMPH % 26.8 %; LYMPH ABS # 2.38 K/uL (1.2-3.4); MEAN CORPUSCULAR HEMOGLOBIN 27.1 pg (25-34); MEAN CORPUSCULAR HGB CONC 32.6 g/dl (32-36); MONO % 7.2 %; NEUT % 64.5 %; PLATELET COUNT 392 K/uL (130-400); RED BLOOD COUNT 5.13 M/uL (4.2-5.4); WHITE BLOOD COUNT 8.89 K/uL (4.8-10.8)
[2016-10-12 12:25] LABS: ALT/SGPT 57 U/L (12-78); AST/SGOT 36 U/L (15-37); BLOOD UREA NITROGEN 23 mg/dl (7-18); BUN/CREATININE RATIO 27.6 (10-20); CALCIUM 9.4 mg/dl (8.5-10.1); CARBON DIOXIDE 26 mmol/L (21-32); CHLORIDE 105 mmol/L (98-107); CREATININE 0.85 mg/dl (0.60-1.20); GLUCOSE 77 mg/dl (70-99); POTASSIUM 4.3 mmol/L (3.5-5.1); SODIUM 139 mmol/L (136-145)
[2016-10-12 12:35] LABS: ALB/GLOB RATIO 1.1 (0.9-2); ALKALINE PHOSPHATASE 100 U/L (45-117); THYROID STIMULATING HORMONE < 0.005 uIu/ml (0.300-4.500)
--- NOTE | 2016-10-12 13:09 | DIAGNOSTIC IMAGING REPORT ---
SOFT TISS HEAD/NECK-THYROID CLINICAL HISTORY: 31 years-old Female presenting with HASHIMOTOS. TECHNIQUE: Real-time grayscale and limited color Doppler ultrasound imaging of the thyroid was performed. COMPARISON: None. FINDINGS: Right lobe: Heterogeneously hyperechoic and normal in size, measuring 5.3 x 1.7 x 1.8 cm. No significant hyperemia. No nodule. Left lobe: Similarly heterogeneous echotexture with normal hyperechogenicity. No significant enlargement of the left lobe, which measures 1.7 x 4.8 x 1.7 cm. No significant hyperemia. No nodule. Isthmus: Normal appearance and thickness, measuring 2 mm. 0.5 x 0.2 x 0.5 cm hypoechoic well-defined nodule in the right aspect of the isthmus, which is avascular and wider than tall. IMPRESSION: 1. Heterogeneity of the thyroid parenchyma could be consistent with Neema's thyroiditis. 2. Subcentimeter intermediate suspicion nodule in the isthmus. Attention on follow-up. No biopsy is indicated at this time. Electronically signed by: Jim Juan M.D. 10/12/2016 1:07 PM Dictated Date/Time: 10/12/2016 12:48 PM
== END | disposition home or self-care (01) ==
LOC: C.ULTR 10:34
PROVIDERS: ATTEND Internal Medicine Endocrinology, Diabetes & Metabolism
DX: E06.3 Autoimmune thyroiditis (principal); E53.9 Vitamin B deficiency, unspecified; E55.9 Vitamin D deficiency, unspecified